=== PATIENT | male | born 1980 | race American Indian/Alaskan Native ===

== ENCOUNTER 2017-02-13 20:40 | Emergency (ER) | payer OTHER ==
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
[2017-02-14] MEDS ORDERED: ZOFRAN IM ONE (01:44)
[2017-02-14] MEDS ORDERED: MORPHINE IM ONE (01:44)
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
[2017-02-14] MEDS ORDERED: ZOFRAN ODT ONE (01:49)
[2017-02-14] MEDS ORDERED: ZOFRAN ODT PO ONE (01:57)
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
[2017-02-14] MEDS ORDERED: TRIPLE ANTIBIOTIC TP ONE ×2 (04:59→05:32)
[2017-02-14 05:36] VITALS: BP 126/80
== END 2017-02-14 05:10 | disposition home or self-care (01) ==
LOC: ED 20:40
DX: S50.01XS Contusion of right elbow, sequela (principal); M25.551 Pain in right hip; V29.9XXD Motorcycle rider (driver) (passenger) injured in unspecified traffic accident, subsequent encounter
CPT/HCPCS: 72192; 73080; 96372; 99284; J2270; A6250; Q0162